=== PATIENT | male | born 1950 | race Caucasian/White ===

== ENCOUNTER → 2017-03-18 | Outpatient (CLI) | payer MEDICARE, OTHER ==
[~2017-03-18] MED LIST: ASPIR 8181 MG PO; CLARITIN 10MG T10 MG PO; COREG 25MG TAB25 MG PO; FLOMAX0.4 MG PO; GLUCOPHAGE 500500 MG PO; ISORDIL TAB 3030 MG PO; KLONOPIN TAB 00.5 MG PO; KLOR-CON M2020 MEQ PO; LASIX 40 MG TAB40 MG PO; LEVEMIR FL100 UNIT/1 SQ; LEVOXYL50 MCG PO; LIPITOR TAB 2020 MG PO; NEURONTIN 300300 MG PO; NORCO 10-325 T1 EACH PO; NORVASC 5 MG TAB5 MG PO; NOVOLOG 10100 UNITS2 INJ; PRINIVIL20 MG PO; PROTONIX40 MG PO; SINGULAIR10 MG PO; ZAROXOLYN/DIUL2.5 MG PO
== END ==
LOC: CT 15:30
DX: I27.2 Other secondary pulmonary hypertension (principal)
CPT/HCPCS: 36415; 82565; 84520